=== PATIENT | female | born 1955 | race Caucasian/White ===

== ENCOUNTER 2018-04-08 18:46 | Emergency (ER) | payer OTHER ==
[~2018-04-08] VITALS: Ht 157.5 cm; Wt 64.9 kg
[2018-04-08] MEDS ORDERED: AVAPRO150 MG (19:20)
[2018-04-08] MEDS ORDERED: FORTAMET1000 MG (19:21)
== END 2018-04-08 22:21 | disposition home or self-care (01) ==
LOC: ER 18:46
DX: R00.2 Palpitations (principal); F06.4 Anxiety disorder due to known physiological condition

== ENCOUNTER 2019-10-04 19:57 | Inpatient (IN) | payer OTHER ==
[~2019-10-04] VITALS: Ht 157.5 cm; Wt 64.9 kg
[~2019-10-04 19:57] MED LIST: AVAPRO150 MG; FORTAMET1000 MG
[2019-10-04] MEDS ORDERED: HYDROXYZIN10 MG/5 ML (20:36)
[2019-10-04] MEDS ORDERED: LODINE300 MG (20:38)
[2019-10-04] MEDS ORDERED: ZOFRAN8 MG PO (20:38)
[2019-10-04] MEDS ORDERED: HYOSCYAMINE0.125 M2 (20:39)
[2019-10-04] MEDS ORDERED: IRBESARTAN150 MG PO (20:39)
[2019-10-04] MEDS ORDERED: ROPINIROLE HC0.25 MG PO (20:39)
[2019-10-04] MEDS ORDERED: GLYBURIDE5 MG (20:40)
[2019-10-17] MEDS ORDERED: INTESTINEX680 M1 PO (14:04)
[2019-10-17] MEDS ORDERED: CARAFATE1 GM PO (14:05)
[2019-10-17] MEDS ORDERED: TAMSULOSIN HCL0.4 MG PO (14:05)
[2019-10-17] MEDS ORDERED: PEPCID AC20 MG PO (14:06)
[2019-10-17] MEDS ORDERED: PANTOPRAZOLE SO40 MG PO (14:06)
[2019-10-17] MEDS ORDERED: IRBESARTAN150 MG PO (14:07)
== END 2019-10-17 16:11 | disposition home or self-care (01) | DRG 660 ==
LOC: ER 19:57 → MEDJ 10-05 17:52
PROVIDERS: Urology; ADMIT Internal Medicine
PROC: 0T778DZ Dilation of Left Ureter with Intraluminal Device, Via Natural or Artificial Opening Endoscopic (ICD-10-PCS; principal; 2019-10-06 09:00)
PROC: BW40ZZZ Ultrasonography of Abdomen (ICD-10-PCS; 2019-10-09)
PROC: 4A12X4Z Monitoring of Cardiac Electrical Activity, External Approach (ICD-10-PCS; 2019-10-09)
DX: N20.1 Calculus of ureter (principal); N17.8 Other acute kidney failure; E11.9 Type 2 diabetes mellitus without complications; N20.0 Calculus of kidney; N28.1 Cyst of kidney, acquired; I10 Essential (primary) hypertension; R00.2 Palpitations

== ENCOUNTER 2019-10-20 13:37 | Outpatient (CLI) | payer OTHER ==
[~2019-10-20 13:37] MED LIST changes: +CARAFATE1 GM PO; +GLYBURIDE5 MG; +HYDROXYZIN10 MG/5 ML; +HYOSCYAMINE0.125 M2; +INTESTINEX680 M1 PO; +IRBESARTAN150 MG PO; +LODINE300 MG; +PANTOPRAZOLE SO40 MG PO; +PEPCID AC20 MG PO; +ROPINIROLE HC0.25 MG PO; +TAMSULOSIN HCL0.4 MG PO; +ZOFRAN8 MG PO
== END 2019-10-20 14:54 | disposition home or self-care (01) ==
LOC: RAD 13:37
DX: N20.1 Calculus of ureter (principal)

== ENCOUNTER 2020-03-27 15:31 | Outpatient (CLI) | payer OTHER | END 2020-03-27 15:32 | disposition home or self-care (01) | LOC: RAD 15:31 | PROVIDERS: ATTEND Urology | DX: N20.1 Calculus of ureter (principal) ==